=== PATIENT | male | born 1985 | race Caucasian/White ===

== ENCOUNTER 2017-03-12 02:20 | Emergency (ER) | payer SELFPAY ==
[~2017-03-12] VITALS: Ht 182.9 cm; Wt 68.0 kg
== END 2017-03-12 04:05 | disposition home or self-care (01) ==
LOC: CED 02:20
DX: L03.211 Cellulitis of face (principal); K08.89 Other specified disorders of teeth and supporting structures; F17.200 Nicotine dependence, unspecified, uncomplicated
CPT/HCPCS: 99284